=== PATIENT | female | born 1980 | race Caucasian/White ===

== ENCOUNTER → 2017-05-25 | Outpatient (REF) ==
[~2017-05-25] MED LIST: /PANT40TA PO; ACET50TA PO; CIPR500T89 PO; FLAG500T PO; IBUP60TA PO; NABUMETONE PO; VICO5TAB16 PO; ZANTAC PO
--- NOTE | 2017-05-25 14:34 | REP ---
LUMBAR SPINE, THREE VIEWS: HISTORY: Degenerative disc disease. COMPARISON: 12/07/2012 There is no acute fracture or subluxation. The intervertebral discs are normal in height. IMPRESSION: There is no acute fracture or subluxation. Signed by Simon Sandoval MD 05/25/2017 02:51 P
--- NOTE | 2017-05-25 17:36 | REP ---
HISTORY: Disability determination. COMPARISON: None. FINDINGS: No acute fracture or destructive osseous lesion. The mortise is intact. There is a plantar calcaneal heel spur which is small to moderate in size. Signed by Aquilino Nesbitt DO 05/25/2017 05:46 P
== END ==
LOC: M SMT 13:11
PROVIDERS: ATTEND Internal Medicine
DX: M51.36 Other intervertebral disc degeneration, lumbar region (principal)

== ENCOUNTER → 2017-05-30 | Outpatient (CLI) | payer MEDICARE ==
--- NOTE | 2017-05-30 21:56 | REP ---
LEFT FOOT SERIES: Four views of the left foot performed. There is a transverse nondisplaced fracture at the base of the 5th metatarsal. I see no other evidence of acute fracture or dislocation. There is mild inferior calcaneal spurring present. There is narrowing at the 2nd metatarsophalangeal joint. IMPRESSION: Nondisplaced fracture base of 5th metatarsal. Signed by Alphonso Jones MD 05/31/2017 12:36 P
== END ==
LOC: M ADAMS 18:26
PROVIDERS: ATTEND Physician Assistant
DX: M79.672 Pain in left foot (principal)

== ENCOUNTER → 2018-03-20 | Outpatient (CLI) | payer MEDICARE ==
[2018-03-20 20:19] LABS: ALBUMIN 4.1 GM/DL (3.2-5.2); AST/SGOT 23 U/L (7-37); CREATININE FOR GFR 0.67 MG/DL (0.55-1.30); GLOMERULAR FILTRATION RATE > 60.0 (>60)
[2018-03-20 20:35] LABS: BASO # 0.1 10^3/uL (0.0-0.2); EOS # 0.2 10^3/uL (0.0-0.50); EOS % 2.8 % (0.0-3.0); HEMATOCRIT 41.9 % (36.0-47.0); HEMOGLOBIN 14.4 g/dl (12.0-15.5); IMMATURE GRANULOCYTE % 0.4 % (0-3.0); LYMPH # 3.1 10^3/uL (1.5-4.5); LYMPH % 37.3 % (24.0-44.0); MEAN CORPUSCULAR HEMOGLOBIN 31.3 pg (27.0-33.0); MEAN CORPUSCULAR HGB CONC 34.4 g/dl (32.0-36.5); MEAN CORPUSCULAR VOLUME 91.1 fl (80.0-96.0); MONO # 0.7 10^3/uL (0.0-0.8); MONO % 8.4 % (0.0-5.0); NEUTROPHILS # 4.1 10^3/uL (1.8-7.7); NEUTROPHILS % 50.1 % (36.0-66.0); PLATELET COUNT, AUTOMATED 415 10^3/uL (150-450); RED CELL DISTRIBUTION WIDTH 13.7 % (11.5-14.5); WHITE BLOOD COUNT 8.2 10^3/uL (4.0-10.0)
[2018-03-20 21:00] LABS: ERYTHROCYTE SEDIMENTATION RATE 4 mm/hr (0-20)
== END ==
LOC: M ADAMS 13:21
DX: Z51.81 Encounter for therapeutic drug level monitoring (principal); Z79.899 Other long term (current) drug therapy; M45.0 Ankylosing spondylitis of multiple sites in spine
CPT/HCPCS: 82040

== ENCOUNTER → 2018-12-14 | Outpatient (CLI) | payer MEDICARE ==
[~2018-12-14] MED LIST changes: -ACET50TA PO; +MAPA500T2 PO
--- NOTE | 2018-12-14 11:36 | REP ---
Clinical: Left knee pain. Technique: AP and lateral left knee. Findings: Mild joint space narrowing and cortical irregularities are appreciated. No acute fracture dislocation. No effusion. Impression: Mild degenerative change. Electronically Signed by Farooq Parker MD 12/14/2018 11:27 A
== END ==
LOC: M ADAMS 10:11
PROVIDERS: ATTEND Nurse Practitioner
DX: M17.12 Unilateral primary osteoarthritis, left knee (principal); M25.562 Pain in left knee

== ENCOUNTER → 2020-03-13 | Outpatient (REF) | payer MEDICARE ==
[~2020-03-13] MED LIST changes: -/PANT40TA PO; +IBUP600T42 PO; -IBUP60TA PO; +PROT1TAB2 PO; -VICO5TAB16 PO; +VICO5TAB17 PO
[2020-03-13 18:17] LABS: ALBUMIN 3.6 GM/DL (3.2-5.2); CREATININE FOR GFR 0.67 MG/DL (0.55-1.30); GLOMERULAR FILTRATION RATE > 60.0 (>60)
[2020-03-13 18:36] LABS: BASO # 0.1 10^3/uL (0.0-0.2); BASO % 0.8 % (0.0-1.0); EOS # 0.3 10^3/uL (0.0-0.5); EOS % 3.1 % (0.0-3.0); HEMATOCRIT 39.9 % (36.0-47.0); HEMOGLOBIN 13.3 g/dl (12.0-15.5); LYMPH # 2.7 10^3/uL (1.5-5.0); LYMPH % 27.7 % (24.0-44.0); MEAN CORPUSCULAR HEMOGLOBIN 30.4 pg (27.0-33.0); MEAN CORPUSCULAR HGB CONC 33.3 g/dl (32.0-36.5); MEAN CORPUSCULAR VOLUME 91.3 fl (80.0-96.0); MONO # 0.9 10^3/uL (0.0-0.8); MONO % 8.8 % (0.0-5.0); NEUTROPHILS # 5.8 10^3/uL (1.5-8.5); NEUTROPHILS % 59.2 % (36.0-66.0); PLATELET COUNT, AUTOMATED 360 10^3/uL (150-450); RED BLOOD COUNT 4.37 10^6/uL (4.00-5.40); WHITE BLOOD COUNT 9.8 10^3/uL (4.0-10.0)
[2020-03-13 19:38] LABS: ERYTHROCYTE SEDIMENTATION RATE 7 mm/hr (0-20)
== END ==
LOC: M LABDRWAD 16:22
PROVIDERS: ATTEND Nurse Practitioner
DX: M45.0 Ankylosing spondylitis of multiple sites in spine (principal)
CPT/HCPCS: 36415; 82040; 82565; 84450; 85027; 85652; G0463

== ENCOUNTER 2020-05-28 16:55 | Emergency (ER) | payer MEDICARE, OTHER ==
[~2020-05-28 16:55] MED LIST changes: +KETOROLAC 30 MG/ML 1ML VIAL ONE; +ONDANSETRON 4MG/2ML VIAL ONE; +SUMAtriptan SUCCINATE 6 MG/0.5 ML VIAL ONE; +diphenhydrAMINE 50MG/ML VIAL (J1200) ONE
== END 2020-05-28 18:33 | disposition home or self-care (01) ==
LOC: M ED 16:55
DX: G43.909 Migraine, unspecified, not intractable, without status migrainosus (principal)
CPT/HCPCS: 96372; 96374; 96375; 99283; J1200; J1885; J2405

== ENCOUNTER → 2020-06-24 | Outpatient (REF) | payer MEDICARE, OTHER ==
[~2020-06-24] MED LIST changes: -KETOROLAC 30 MG/ML 1ML VIAL ONE; -ONDANSETRON 4MG/2ML VIAL ONE; -SUMAtriptan SUCCINATE 6 MG/0.5 ML VIAL ONE; -diphenhydrAMINE 50MG/ML VIAL (J1200) ONE
[2020-06-24 15:19] LABS: HEMOGLOBIN A1c 5.6 %
[2020-06-24 15:20] LABS: BLOOD UREA NITROGEN 10 MG/DL (7-18); CARBON DIOXIDE LEVEL 25 MEQ/L (21-32); CHLORIDE LEVEL 109 MEQ/L (98-107); CHOLESTEROL LEVEL 239 MG/DL (<200); CHOLESTEROL RISK RATIO 5.195 (<5); CREATININE FOR GFR 0.73 MG/DL (0.55-1.30); FREE T4 1.13 NG/DL (0.76-1.46); GLOMERULAR FILTRATION RATE > 60.0 (>58); GLUCOSE, FASTING 88 MG/DL (70-100); HDL CHOLESTEROL 46 MG/DL (>40); LDL CHOLESTEROL 153 MG/DL (<100); NON-HDL-C 193 MG/DL; POTASSIUM SERUM 4.1 MEQ/L (3.5-5.1); SODIUM LEVEL 140 MEQ/L (136-145); TRIGLYCERIDES LEVEL 202 MG/DL (<150)
== END ==
LOC: M LABDRWAD 09:45
PROVIDERS: ATTEND Physician Assistant
DX: Z13.1 Encounter for screening for diabetes mellitus (principal); Z13.220 Encounter for screening for lipoid disorders; Z13.6 Encounter for screening for cardiovascular disorders; G43.109 Migraine with aura, not intractable, without status migrainosus; Z79.899 Other long term (current) drug therapy

== ENCOUNTER → 2021-07-28 | Outpatient (REF) | payer OTHER | LOC: M SFHCWAGY 18:57 | PROVIDERS: ATTEND Obstetrics & Gynecology | DX: Z12.4 Encounter for screening for malignant neoplasm of cervix (principal) ==

== ENCOUNTER → 2021-07-28 | Outpatient (CLI) | payer OTHER ==
--- NOTE | 2021-07-28 12:56 | REPMRS ---
Patient History No known family history of cancer. No Hormone Replacement Therapy Tomosynthesis is performed. Volpara breast density is b. [facility] lifetime risk of breast cancer 11.3%. Patient states no breast complaints today. Patient has signed MRS History Sheet. Digital Woman Screen Mammo: July 28, 2021 - Exam #: [id number] Bilateral CC and MLO view(s) were taken. Technologist: Rhonda Villafuerte, [employer] Developer No prior studies available for comparison. FINDINGS: There are scattered fibroglandular densities. There is a mild amount of residual fibroglandular tissue which is fairly symmetric. There is no dominant mass, architectural distortion, or clustered microcalcification suggestive of malignancy. Assessment: BI-RADS/ACR category 1 mammogram. Negative Mammogram. Recommendation Routine screening mammogram in 1 year (for women over age 40). This mammogram was interpreted with the aid of an FDA-approved computer-aided dectection system. Electronically Signed By: Alphonso Jones MD 07/28/21 [id number]
== END ==
LOC: M WHC 11:26
PROVIDERS: ATTEND Obstetrics & Gynecology
DX: Z01.419 Encounter for gynecological examination (general) (routine) without abnormal findings (principal); Z12.31 Encounter for screening mammogram for malignant neoplasm of breast
CPT/HCPCS: 77063; 77067; 87624; G0123; G0463

== ENCOUNTER 2022-04-25 18:40 | Emergency (ER) | payer OTHER ==
[~2022-04-25] VITALS: Ht 149.9 cm; Wt 71.8 kg
[2022-04-25 18:41] VITALS: BP 132/79
[2022-04-25] MEDS ORDERED: CELE1CAP9 (18:49)
[2022-04-25] MEDS ORDERED: OMEP40CA5 (18:49)
[2022-04-25] MEDS ORDERED: CARI1TAB7 (18:49)
[2022-04-25] MEDS ORDERED: LEFL1TAB4 (18:50)
== END 2022-04-25 20:06 | disposition home or self-care (01) ==
LOC: M ED 18:40
DX: S93.402A Sprain of unspecified ligament of left ankle, initial encounter (principal); S90.32XA Contusion of left foot, initial encounter; W17.89XA Other fall from one level to another, initial encounter; Y92.018 Other place in single-family (private) house as the place of occurrence of the external cause; K21.9 Gastro-esophageal reflux disease without esophagitis; M45.9 Ankylosing spondylitis of unspecified sites in spine; Z88.5 Allergy status to narcotic agent; Z79.899 Other long term (current) drug therapy

== ENCOUNTER → 2022-09-28 | Outpatient (CLI) | payer OTHER ==
[~2022-09-28] MED LIST changes: +CARI1TAB7; +CELE1CAP9; +LEFL1TAB4; +OMEP40CA5
== END ==
LOC: M RAD 09:06
PROVIDERS: ATTEND Physician Assistant
DX: N28.1 Cyst of kidney, acquired (principal)

== ENCOUNTER → 2022-09-28 | Outpatient (REF) | payer OTHER ==
[2022-09-28 18:43] LABS: APPEARANCE, URINE MANUAL HAZY (CLEAR); BILIRUBIN, URINE MANUAL NEGATIVE (NEGATIVE); BLOOD URINE MANUAL NEGATIVE (NEGATIVE); COLOR, URINE MANUAL LT YELLOW (YELLOW); GLUCOSE, URINE (UA) MANUAL NEGATIVE (NEGATIVE); KETONE, URINE MANUAL NEGATIVE (NEGATIVE); LEUKOCYTE ESTERASE, URINE MAN POSITIVE (NEGATIVE); NITRITE, URINE MANUAL NEGATIVE (NEGATIVE); PROTEIN, URINE MANUAL NEGATIVE (NEGATIVE); SPECIFIC GRAVITY,URINE MANUAL 1.015 (1.002-1.035); UROBILINOGEN, URINE MANUAL NORMAL (NORMAL)
[2022-09-28 18:58] LABS: RBC, URINE 0-1 /hpf (0-3); SQUAMOUS EPITHELIAL CELL URINE LARGE AMOUNT /hpf (SMALL AMT); TRANSITIONAL EPI CELLS, URINE SMALL AMOUNT /hpf
[2022-09-28 19:00] LABS: BACTERIA, URINE SMALL AMOUNT
[2022-09-28 19:01] LABS: HYALINE CAST, URINE NONE SEEN /lpf (0-1); MUCUS, URINE MOD AMOUNT (NEGATIVE)
== END ==
LOC: M SMT 17:11
PROVIDERS: ATTEND Urology
DX: R10.9 Unspecified abdominal pain (principal)

== ENCOUNTER → 2022-10-14 | Outpatient (CLI) | payer OTHER | LOC: M RAD 10:15 | PROVIDERS: ATTEND Urology | DX: R91.8 Other nonspecific abnormal finding of lung field (principal) ==

== ENCOUNTER → 2022-11-25 | Outpatient (REF) | payer OTHER ==
[2022-11-25 12:46] LABS: BASO # 0.1 10^3/uL (0.0-0.2); BASO % 0.8 % (0.0-1.0); EOS # 0.3 10^3/uL (0.0-0.5); EOS % 3.1 % (0.0-3.0); HEMOGLOBIN 10.2 g/dl (12.0-15.5); LYMPH # 3.3 10^3/uL (1.5-5.0); MEAN CORPUSCULAR HEMOGLOBIN 24.8 pg (27.0-33.0); MEAN CORPUSCULAR VOLUME 82.5 fl (80.0-96.0); MONO # 0.7 10^3/uL (0.0-0.8); MONO % 7.8 % (2.0-8.0); NEUTROPHILS # 4.9 10^3/uL (1.5-8.5); NEUTROPHILS % 52.9 % (36.0-66.0); PLATELET COUNT, AUTOMATED 374 10^3/uL (150-450); RED BLOOD COUNT 4.12 10^6/uL (4.00-5.40); WHITE BLOOD COUNT 9.3 10^3/uL (4.0-10.0)
[2022-11-25 13:22] LABS: IRON (FE) 29 UG/DL (50-170); PERCENT SATURATION 7.9 % (13.2-45.0); TOTAL IRON BINDING CAPACITY 369 UG/DL (250-425)
[2022-11-25 13:26] LABS: ALBUMIN 3.5 G/DL (3.2-5.2); ALKALINE PHOSPHATASE 44 U/L (46-116); ALT/SGPT 20 U/L (7.0-40); AST/SGOT 18 U/L (<34); BILIRUBIN,TOTAL 0.3 MG/DL (0.3-1.2); BLOOD UREA NITROGEN 14 MG/DL (9-23); CALCIUM LEVEL 8.6 MG/DL (8.5-10.1); CARBON DIOXIDE LEVEL 26 MMOL/L (20-31); CHLORIDE LEVEL 104 MMOL/L (98-107); CREATININE FOR GFR 0.62 MG/DL (0.55-1.30); FERRITIN 1.9 NG/ML (7.3-270.7); FOLATE 9.3 NG/ML (>5.4); FREE T4 1.21 NG/DL (0.89-1.76); GLOMERULAR FILTRATION RATE > 60.0 (>58); GLUCOSE, FASTING 112 MG/DL (60-100); POTASSIUM SERUM 4.2 MMOL/L (3.5-5.1); SODIUM LEVEL 137 MMOL/L (136-145); TOTAL PROTEIN 6.3 G/DL (5.7-8.2); VITAMIN B12 LEVEL 284 PG/ML (211-911)
== END ==
LOC: M SFHCADAM 09:01
PROVIDERS: ATTEND Physician Assistant
DX: D64.9 Anemia, unspecified (principal)

== ENCOUNTER → 2022-11-30 | Outpatient (CLI) | payer OTHER | LOC: M WHC 13:23 | PROVIDERS: ATTEND Obstetrics & Gynecology | DX: Z12.31 Encounter for screening mammogram for malignant neoplasm of breast (principal); R92.2 Inconclusive mammogram ==

== ENCOUNTER → 2022-12-02 | Outpatient (CLI) | payer OTHER | LOC: M WHC 09:32 | PROVIDERS: ATTEND Obstetrics & Gynecology | DX: R92.8 Other abnormal and inconclusive findings on diagnostic imaging of breast (principal) | CPT/HCPCS: 76642; 77065; G0279 ==

== ENCOUNTER → 2023-07-19 | Outpatient (CLI) | payer OTHER ==
[~2023-07-19] MED LIST changes: +CELE0.09; -CELE1CAP9
== END ==
LOC: M RAD 12:48
DX: M79.671 Pain in right foot (principal)

== ENCOUNTER → 2023-09-06 | Outpatient (REF) | payer OTHER ==
[2023-09-06 13:30] LABS: BASO # 0.1 10^3/uL (0.0-0.2); BASO % 0.8 % (0.0-1.0); EOS # 0.4 10^3/uL (0.0-0.5); EOS % 3.7 % (0.0-3.0); HEMATOCRIT 37.9 % (36.0-47.0); HEMOGLOBIN 11.9 g/dl (12.0-15.5); LYMPH # 2.5 10^3/uL (1.5-5.0); LYMPH % 22.3 % (24.0-44.0); MEAN CORPUSCULAR HGB CONC 31.4 g/dl (32.0-36.5); MEAN CORPUSCULAR VOLUME 86.1 fl (80.0-96.0); MONO # 0.7 10^3/uL (0.0-0.8); MONO % 6.4 % (2.0-8.0); NEUTROPHILS # 7.4 10^3/uL (1.5-8.5); NEUTROPHILS % 66.2 % (36.0-66.0); PLATELET COUNT, AUTOMATED 481 10^3/uL (150-450); WHITE BLOOD COUNT 11.2 10^3/uL (4.0-10.0)
[2023-09-06 13:38] LABS: ERYTHROCYTE SEDIMENTATION RATE 36 mm/hr (0-20)
[2023-09-06 14:02] LABS: RHEUMATOID FACTOR QUANT < 3.5 IU/ML (<14)
== END ==
LOC: M LABDRWAD 12:45
PROVIDERS: ATTEND Physician Assistant
DX: M79.671 Pain in right foot (principal)

== ENCOUNTER → 2024-02-14 | Outpatient (REF) | payer OTHER ==
[~2024-02-14] MED LIST changes: -LEFL1TAB4; +LEFL20TA15
[2024-02-14 17:21] LABS: PERCENT SATURATION 8.7 % (13.2-45.0)
[2024-02-14 17:24] LABS: FERRITIN 3.5 NG/ML (7.3-270.7)
== END ==
LOC: M LAB REF 16:41
PROVIDERS: ATTEND Nurse Practitioner Family
DX: D64.9 Anemia, unspecified (principal)

== ENCOUNTER → 2024-03-20 | Outpatient (CLI) | payer OTHER | LOC: M WHC 10:16 | PROVIDERS: ATTEND Nurse Practitioner Family | DX: Z12.31 Encounter for screening mammogram for malignant neoplasm of breast (principal) ==

== ENCOUNTER → 2024-08-21 | Outpatient (REF) | payer OTHER | LOC: M PLALAB 17:01 | PROVIDERS: ATTEND Obstetrics & Gynecology | DX: Z01.419 Encounter for gynecological examination (general) (routine) without abnormal findings (principal); Z53.9 Procedure and treatment not carried out, unspecified reason ==

== ENCOUNTER → 2024-08-22 | Outpatient (REF) | payer OTHER ==
[2024-08-27 16:42] LABS: HPV APTIMA Not Detected (Not Detected)
== END ==
LOC: M SFHCWAGY 15:29
PROVIDERS: ATTEND Obstetrics & Gynecology
DX: Z12.4 Encounter for screening for malignant neoplasm of cervix (principal)
CPT/HCPCS: 87624; G0123

== ENCOUNTER → 2024-09-04 | Outpatient (CLI) | payer OTHER | LOC: M PLAIMG 09:47 → M PLALAB 09:47 | PROVIDERS: ATTEND Nurse Practitioner Family | DX: M54.9 Dorsalgia, unspecified (principal) ==

== ENCOUNTER → 2024-12-27 | Outpatient (REF) | payer OTHER, MEDICARE ==
[~2024-12-27] MED LIST changes: +CARI-555; -CARI1TAB7
[2024-12-27 19:30] LABS: PERCENT SATURATION 5.6 % (13.2-45.0)
[2024-12-27 19:32] LABS: FERRITIN 4.9 NG/ML (7.3-270.7)
== END ==
LOC: M LAB REF 17:45
PROVIDERS: ATTEND Nurse Practitioner Family
DX: D50.9 Iron deficiency anemia, unspecified (principal)

== ENCOUNTER → 2025-05-15 | Outpatient (CLI) | payer OTHER | LOC: M WHC 09:18 | PROVIDERS: ATTEND Obstetrics & Gynecology | DX: Z12.31 Encounter for screening mammogram for malignant neoplasm of breast (principal) ==

== ENCOUNTER → 2025-06-25 | Outpatient (CLI) | payer MEDICARE | LOC: M WHC 09:04 | PROVIDERS: ATTEND Obstetrics & Gynecology | DX: Z12.31 Encounter for screening mammogram for malignant neoplasm of breast (principal); R92.313 Mammographic fatty tissue density, bilateral breasts ==

== ENCOUNTER → 2025-07-11 | Outpatient (REF) | payer MEDICARE ==
[2025-07-11 15:36] LABS: IRON (FE) 226.0 UG/DL (50-170); PERCENT SATURATION 78.5 % (13.2-45.0)
== END ==
LOC: M LAB REF 14:49
PROVIDERS: ATTEND Nurse Practitioner Family
DX: D50.9 Iron deficiency anemia, unspecified (principal)

== ENCOUNTER → 2025-07-19 | Outpatient (CLI) | payer MEDICARE | LOC: M WUC 08:17 | PROVIDERS: ATTEND Nurse Practitioner Family | DX: M25.571 Pain in right ankle and joints of right foot (principal) ==

== ENCOUNTER → 2025-08-28 | Outpatient (REF) | payer OTHER | LOC: M PLALAB 11:19 | PROVIDERS: ATTEND Obstetrics & Gynecology | DX: Z01.419 Encounter for gynecological examination (general) (routine) without abnormal findings (principal) ==